=== PATIENT | male | born 1990 | race African-American/Black ===

== ENCOUNTER 2018-10-09 03:29 | Emergency (ER) | payer OTHER ==
[2018-10-09] MEDS ORDERED: Ketorolac Tromethamine 30 MG/ML VIAL ONE (03:54)
--- NOTE | 2018-10-09 08:07 | RAD ---
SINGLE VIEW CHEST: Date: 10/09/18 COMPARISON: None. HISTORY: Chest pressure. FINDINGS: Single view of the chest shows a normal sized cardiomediastinal silhouette. There is no evidence of c onsolidation, mass, or pleural effusion. The bones are unremarkable. IMPRESSION: No evidence of acute cardiopulmonary disease. POS: [facility]
--- NOTE | 2018-10-11 17:15 | EKG ---
Test Reason : CP Blood Pressure : / mmHG Vent. Rate : 048 BPM Atrial Rate : 048 BPM P-R Int : 150 ms QRS Dur : 088 ms QT Int : 416 ms P-R-T Axes : 039 022 029 degrees QTc Int : 371 ms Marked sinus bradycardia Abnormal ECG Confirmed by KAMINI GOLDEN ([id number]), food editor LOIS GUZMÁN ([id number] on 10/11/2018 5:14:55 PM Referred By: Confirmed By:KAMINI GOLDEN
== END 2018-10-09 05:22 ==
LOC: ERS 03:29
DX: R07.89 Other chest pain (principal)
CPT/HCPCS: 71045; 93005; 96374; J1885